=== PATIENT | male | born 1950 | race Caucasian/White ===

== ENCOUNTER 2021-06-01 13:43 | Emergency (ER) | payer MEDICARE, OTHER, SELFPAY ==
[2021-06-01 13:44] VITALS: BP 140/80; PULSE 61; RESP 16; TEMP 36.4; O2SAT 98; BMI 28.5
--- NOTE | 2021-06-01 14:29 | EKG12_ITS ---
Test Reason : DIZZINESS Blood Pressure : / mmHG Vent. Rate : 056 BPM Atrial Rate : 056 BPM P-R Int : 194 ms QRS Dur : 100 ms QT Int : 408 ms P-R-T Axes : 008 -11 028 degrees QTc Int : 393 ms Sinus bradycardia with Premature atrial complexes Otherwise normal ECG Confirmed by OLY COUCH, MADIHA ([id number]), managing editor GRETA GONZALEZ ([id number]) on 06/05/2021 9:45:36 AM Referred By: DORI/FLAKITA Confirmed By:WENDI ALDRIDGE MD
--- NOTE | 2021-06-01 14:35 | RAD_ITS ---
STUDY: X-RAY CHEST REASON FOR EXAM: Male, 70 years old. Stroke TECHNIQUE: Single AP portable view of the chest. COMPARISON: Comparison is made with prior study dated 02/27/2017. FINDINGS: Mild increased markings at the left lung base suggestive of a left basilar atelectasis and/or early infiltrate. There is no demonstrated pleural abnormality. Normal size heart. Normal mediastinum and ghazal. Normal visualized pulmonary arteries. There is atherosclerotic calcification of the aortic arch with tortuosity. There are diffuse degenerative changes of the visualized thoracic spine. Levoscoliosis. Normal visualized ribs, clavicles, and shoulders. There is no demonstrated abnormality of the visualized soft tissue structures of the upper abdomen. RAD/Chest 1 View (Portable) IMPRESSION: Mild increased markings at the left lung base suggestive of atelectasis and/or early infiltrate. Electronically Signed: Tanner Leslie MD at 15:03 EST , Service support ,
[2021-06-01 15:07] VITALS: BP 173/106; PULSE 56; RESP 9; O2SAT 98
[2021-06-01 15:08] VITALS: O2SAT 96
[2021-06-01 15:17] LABS: Absolute Lymphocyte Count 1.24 X10^3/uL (0.83-4.51); Absolute Neutrophil Count 5.4 X10^3/uL (2.0-7.7); Basophil# 0.09 X10^3/uL; Basophil% 1.2 % (0-1); Eosinophils% 2.6 % (0-5); Hematocrit 43.5 % (40-54); Hemoglobin 14.6 g/dL (13.0-16.5); Lymphocyte # 1.24 X10^3/ul (0.83-4.51); Lymphocyte % 15.9 % (19-41); Mean Corp Hgb Conc 33.6 g/dL (32-36); Mean Corpuscular Hgb 30.9 pg (27.0-32.0); Mean Corpuscular Volume 92.2 fL (80-94); Mean Platelet Vol. 11.9 fl (6.2-12.0); Monocyte% 10.3 % (0-10); NRBC Flagged by Analyzer 0 % (0-5); Neutrophil # 5.43 X10^3/uL (2.7-7.7); Neutrophil % 69.6 % (47-70); Platelet Count 169 K/mm3 (150-450); RBC Distribution Width CV 12.7 % (11.6-14.6); RBC Distribution Width SD 42.6 fl (35.1-43.9); Red Blood Count 4.72 M/mm3 (4.6-6.2); White Blood Count 7.8 K/mm3 (4.4-11.0)
[2021-06-01 15:25] LABS: Prothrombin Time (Protime)PT. 12.6 SECONDS (11.7-14.9)
[2021-06-01 15:26] LABS: Partial Thromboplast Time 30.1 Seconds (24.1-36.2)
[2021-06-01 15:29] LABS: Anion Gap 2 (5-15); BUN 17 mg/dL (7-18); BUN/Creat Ratio 15.7 RATIO (10-20); Calcium,Total 9.9 mg/dL (8.5-10.1); Chloride 105 mmol/L (98-107); Creatinine, Serum 1.08 mg/dL (0.70-1.30); EST Glomerular Filtration Rate 71 mL/min (>60); Est Glom Filt Rate - Afr Amer 86 mL/min (>60); Estimated Creatinine Clearance 65.85 ml/min; Glucose 94 mg/dL (74-106); Potassium 4.5 mmol/L (3.5-5.1); Sodium Level 139 mmol/L (136-145)
[2021-06-01 16:10] VITALS: BP 137/92; PULSE 52; O2SAT 96
--- NOTE | 2021-06-01 16:33 | EDS_ITS ---
HPI History of Present Illness Chief Complaint: Dizziness Informant: patient and spouse/S.O. Onset/Context/Timing Onset: Days Context: Gradual Onset Timing: Intermittent Current Severity: Mild Maximum Severity: Mild Narrative Narrative: 68-year-old male history of stroke about 10 years ago. States on Saturday he had a 1 to 2-hour episode of room spinning worsening versus fine. He did not want to be evaluated at that time. Family finally talked him into being evaluated today. He denies any headache or head trauma. No chest pain or shortness of breath. No nausea, vomiting or diarrhea. Saturday had some mildly loose stools. States that he is always dizzy to seem worse on Saturday. He had no trouble moving his arms or legs. No trouble with his vision or speech. Prior similar symptoms: Yes Recent Illness/Hospitalization: No PFSH PFSH Medical History Gout Hypertension Stroke/cerebrovascular accident TBI (traumatic brain injury) Home Medications aspirin 81 mg PO DAILY@0800 07/26/16 [History Last Taken 02/27/17] lisinopril-hydrochlorothiazide [Zestoretic] 1 ea PO DAILY 07/26/16 [History Last Taken 02/26/17] simvastatin 40 mg PO QHS 07/26/16 [History Last Taken 02/26/17] allopurinol 100 mg PO DAILY 12/30/16 [History Last Taken 02/26/17] diphenhydramine HCl [Banophen] 25 - 50 mg PO QHS PRN PRN 01/08/17 [History Last Taken 02/26/17] Allergy/AdvReac Type Severity Reaction Status Date / Time Sulfa (Sulfonamide Allergy Other Verified 06/01/21 13:45 Antibiotics) Social History Smoking Status: Never smoker ROS ROS ED ROS Narrative No recent illness. Review of Systems ROS Unobtainable: Denies due to encephalopathy Constitutional Constitutional ED: Denies fever(s) Eyes Eyes: Denies change in vision ENT ENT ED: Denies ear pain Cardiovascular Cardiovascular: Denies chest pain Respiratory/Chest Respiratory/Chest: Denies dyspnea Gastrointestinal Gastrointestinal: Denies abdominal pain, nausea or vomiting Genitourinary Genitourinary ED: Denies dysuria Musculoskeletal Musculoskeletal: Denies myalgias Integumentary Denies rash Neurologic Neurologic: Denies headache(s) Psychiatric Psychiatric: Denies depression Endocrine Endocrinology: Denies polyuria Allergic/Immunologic Allergic/Immunologic ED: Denies urticaria EXAM Physical Exam Narrative Exam Narrative: 68-year-old male no acute distress lying in bed. Family at bedside. H EENT exam unremarkable. Dry reactive light no facial droop normal speech neck nontender lungs clear to auscultation bilaterally. Heart regular rhythm rate about 60 no murmur. Abdomen soft nontender. Moving all 4 extremities. 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 Dorsi plantarflexion intact. No drift of either upper or lower extremities. Neurologically is awake alert he is answering questions and following commands. NIH score is 0. I did do Hallpike maneuvers with him lying in bed and then setting up quickly and he had no change in his symptoms. He does have significant wax in both ear canals. Const Vital Signs: 06/01/21 13:44 06/01/21 15:07 06/01/21 15:08 Temperature 97.6 F L Temperature Source Temporal Pulse Rate 61 56 L Respiratory Rate 16 9 L Blood Pressure 140/80 H 173/106 H Blood Pressure Mean 100 128 Pulse Ox 98 98 96 Oxygen Delivery Method Room Air Room Air Room Air 06/01/21 16:10 06/01/21 18:36 Temperature Temperature Source Pulse Rate 52 L 50 L Respiratory Rate 15 Blood Pressure 137/92 H 160/95 H Blood Pressure Mean 107 116 Pulse Ox 96 95 Oxygen Delivery Method Room Air Positive well nourished and well developed; Negative for obese, cachectic, contractures or unkempt General Appearance ED: well developed and NAD; Negative for unkempt, cachectic, contractures, cyanotic or diaphoretic Nutritional Appearance: Negative for cachectic or obese HEENT Reports moist mucous membranes HEENT Narrative: Wax in both ear canals. Negative for trauma or tenderness Eyes PERRL and EOMs intact bilaterally Neck no lymphadenopathy, supple and no JVD Chest Wall inspection of chest normal and palpation of chest normal Resp normal respiratory effort and clear to auscultation bilaterally Effort and Inspection: Negative for pain with movement Auscultation: Negative for rales, rhonchi or wheezes Cardio regular rate, regular rhythm, S1 normal heart sound, S2 normal heart sound and no murmurs GI normal to inspection, nondistended, normoactive bowel sounds, non-tender, non- distended and no masses Auscultation: normoactive bowel sounds Palpation: soft; Negative for tender, guarding or rebound tenderness present Back/Spine no CVA tenderness General Back: Negative for CVA tenderness Extremity normal to inspection General Extremety ED: Negative for edema or tenderness General Extremity: Negative for edema Neuro oriented x3 and CN's II-XII intact bilaterally Sensorium / Orientation: alert; Negative for orientation impaired, lethargic or stuporous Motor Exam: strength 5/5 throughout Psych mental status grossly normal Appearance: Negative for unkempt Mood & Affect: Negative for depressed Skin no rashes or lesions noted, no wounds and skin turgor normal MDM MDM MDM Narrative Medical decision making narrative: 70-year-old male with episode of vertigo-like dizziness on Saturday that is since resolved. He has no motor deficits at this time. He will undergo work-up. Including a CAT scan. Repeat exam patient is doing well at 6:55 PM will be discharged home with outpatient follow-up. Lab Data Attestation: I reviewed the patient's lab results. Lab results narrative: CBC shows a white count of 7 hemoglobin 14. PT PTT INR unremarkable electrolytes unremarkable gap 2 normal BUN and creatinine glucose 94. Labs: Laboratory Results - last 24 hr 06/01/21 06/01/21 06/01/21 15:05 15:05 15:05 WBC 7.8 RBC 4.72 Hgb 14.6 Hct 43.5 MCV 92.2 MCH 30.9 MCHC 33.6 RDW Std Deviation 42.6 RDW Coeff of Anna 12.7 Plt Count 169 MPV 11.9 Immature Gran % (Auto) 0.400 Neut % (Auto) 69.6 Lymph % (Auto) 15.9 L Stearns % (Auto) 10.3 H Eos % (Auto) 2.6 Baso % (Auto) 1.2 H Absolute Neuts (auto) 5.4 Absolute Lymphs (auto) 1.24 Nucleated RBC % 0 PT 12.6 INR 1.0 APTT 30.1 Sodium 139 Potassium 4.5 Chloride 105 Carbon Dioxide 32.0 Anion Gap 2 L BUN 17 Creatinine 1.08 Estim Creat Clear Calc 65.85 Est GFR (MDRD) Af Amer 86 Est GFR (MDRD) Non-Af 71 BUN/Creatinine Ratio 15.7 Glucose 94 Calcium 9.9 Radiography Chest X-Ray - ED: 1 View, Read by ED Physician, Read by Radiologist, Heart, Lungs, Mediastinum, Bony Structures, No Acute Disease and Chronic Changes Diagnostic Testing: Clinical Impression(s) from Imaging Studies Chest X-Ray 06/01/21 14:35 IMPRESSION: Mild increased markings at the left lung base suggestive of atelectasis and/or early infiltrate. Electronically Signed: Tanner Leslie MD at 15:03 EST , Service support , Brain CT 06/01/21 16:45 IMPRESSION: Chronic involutional changes without evidence of acute intracranial or calvarial abnormality. There is no major interval change. Electronically Signed: Christian Bahena DO at 16:59 EST Tel [phone], Service support , Single view chest x-ray shows no acute abnormality. Interpreted by myself and the radiologist. CAT scan of the brain no acute abnormality read by the radiologist and reviewed by me. Rhythm Strip Rhythm Strip: Sinus Rhythm Rate: 56 Ectopy: PAC(s) EKG Initial EKG: Attestation: I personally reviewed and interpreted this EKG as follows: Interpretation: Sinus Rhythm and No Acute Injury Pattern Comments: Sinus bradycardia rate of 56 no acute signs of AR or ischemia. Few PACs. Unchanged from prior EKG. Prior EKG tracings: available for review Prior: Unchanged Discharge Plan Triage Chief Complaint: Dizziness ED Provider: Ezekiel Parker Dx/Rx/DC Orders Clinical Impression: Dizziness, History of stroke Instructions: ED Dizziness, Uncertain Cause Prescriptions: No Action aspirin 81 MG tablet 81 mg PO DAILY@0800 RF: 0 simvastatin 40 MG tablet 40 mg PO QHS RF: 0 lisinopril-hydrochlorothiazide [Zestoretic] 1 EACH tablet 1 ea PO DAILY RF: 0 allopurinol 100 MG tablet 100 mg PO DAILY RF: 0 diphenhydramine HCl [Banophen] 25 MG capsule 25 - 50 mg PO QHS PRN PRN (Reason: allergies/ insomnia) RF: 0 Primary Care Provider: Carlton Gaspar Referrals: Cartlon Gaspar MD [Primary Care Provider] - 3-5 Days if not improving Activity Restrictions/Additional Instructions: Follow-up with your primary care physician not improving. Your labs and CAT scan today were unremarkable. You have a severe amount of wax in both ears sometimes that can cause dizziness you can get [id number] Cerumenex or drops for earwax that should help this go away. Disposition Disposition: Home, Self Care
--- NOTE | 2021-06-01 16:45 | CT_ITS ---
STUDY: CT BRAIN WITHOUT CONTRAST REASON FOR EXAM: Male, 70 years old. Dizziness. RADIATION DOSAGE (If Supplied By Facility): CTDIvol = ( 44.99 ) mGy, DLP = ( 914.22 ) mGycm TECHNIQUE: Transaxial CT imaging of the brain was performed without administration of intravenous contrast material. Individualized dose optimization techniques were used for this CT. COMPARISON: MRI of the brain, 10/07/2015. FINDINGS: Normal soft tissue structures. Normal calvarium. There is mild cerebral atrophy with widening of the extra-axial spaces and ventricular dilatation. Normal white matter tracts of the cerebral hemispheres. Normal basal ganglia and thalami. Normal brainstem. There is mild cerebellar atrophy. There is no intracranial hemorrhage. There are no findings of an acute ischemic infarction. Normal visualized paranasal sinuses. CT/Brain/Head without Contrast IMPRESSION: Chronic involutional changes without evidence of acute intracranial or calvarial abnormality. There is no major interval change. Electronically Signed: Christian Bahena DO at 16:59 EST Tel [phone], Service support ,
[2021-06-01 18:36] VITALS: BP 160/95; PULSE 50; RESP 15; O2SAT 95
[2021-06-01 19:02] VITALS: BP 169/83; PULSE 50; RESP 12; O2SAT 97
== END 2021-06-01 19:09 | disposition home or self-care (01) ==
PROVIDERS: Emergency Provider Emergency Medicine; PCP Family Medicine
DX: R42 Dizziness and giddiness (principal); I10 Essential (primary) hypertension; M10.9 Gout, unspecified; I70.0 Atherosclerosis of aorta; Z86.73 Personal history of transient ischemic attack (TIA), and cerebral infarction without residual deficits; G31.9 Degenerative disease of nervous system, unspecified; R00.1 Bradycardia, unspecified
CPT/HCPCS: 70450; 71045; 80048; 85025; 85610; 85730; 93005; 99284

== ENCOUNTER 2021-07-17 10:47 | Day surgery (SDC) | payer MEDICARE, OTHER, SELFPAY ==
[2021-07-17] VITALS (7 sets, daily range): BP systolic 100–159; BP diastolic 74–97; PULSE 54–65; RESP 16; TEMP 36.4–36.8; O2SAT 93–100; BMI 28.3
[2021-07-17] MEDS: Lactated Ringers 1,000 ML 15 ML IV (11:36)
--- NOTE | 2021-07-17 11:56 | HP.PCM_ITS ---
History and Physical Date of Admission: 07/17/21 REASON FOR VISIT Lino Novak is a 70 year old male who is scheduled at the request of Carlton Gapsar for Outpatient Colonoscopy (5 year repeat colonoscopy). My final recommendations will be communicated back to the requesting physician by the way of the shared medical record, fax, or via US Mail ? The patient was seen by on 06/11/2014?for colonoscopy for screening in patient at increased risk: Family history of 1st-degree relative with colorectal cancer, Last colonoscopy 5 years ago.. ?The procedures were performed with Midazolam 4 mg IV, Fentanyl 75 micrograms IV sedation. The procedure report has been reviewed and findings as follows: Impression: ?- Diverticulosis in the entire examined colon. The examination was otherwise normal. The distal rectum and anal verge are normal on ? retroflexion view. Repeat colonoscopy in 5 years for screening purposes. ? ? HISTORY OF PRESENT ILLNESS Lino Novak is a 70 year old male with a past medical history HTN, hyperlipidemia cerebellar stroke syndrome(2009) on Aspirin , gout, MARY on BIPAP , dizziness, imbalance, TIA. Patient has a family history mother diagnosised colon cancer. who presents today for an evaluation of colon cancer screening. ? The patient denies change in bowel habits, denies black stool or rectal bleeding or abdominal pain. Having a bowel movement Was having soft stool taking probiotic and since has been fine ? SOB is with bending over - patient and states this is more weight related REVIEW OF SYSTEMS: GENERAL: No weight loss, malaise or fevers HEENT: Negative for frequent or significant headaches, No changes in hearing or vision, no nose bleeds or other nasal problems NECK: Negative for lumps, goiter, pain and significant neck swelling RESPIRATORY: Negative for cough, hemoptysis, wheezing, COPD, dyspnea or shortness of breath CARDIOVASCULAR: Negative for chest pain, leg swelling, hypertension, CHF or palpitations GI: SEE HPI : No history of dysuria, frequency or incontinence MUSCULOSKELETAL: Negative for joint pain or swelling, back pain or muscle pain SKIN: Negative for lesions, rash, and itching PSYCH: Negative for sleep disturbance, mood disorder and recent psychosocial stressors. HEMATOLOGY/LYMPHOLOGY Negative for prolonged bleeding, bruising easily or swollen nodes ENDOCRINE: Negative for cold or heat intolerance, polyuria, polydipsia and goiter NEURO: No history of headaches, syncope, paralysis, seizures or tremors All other reviewed and negative other than HPI. PAST MEDICAL HISTORY PAST MEDICAL HISTORY Diagnosis Date ? ALLERGIC RHINITIS NOS ? ? Cerebellar stroke syndrome 03/2010 ? discoordination, speech deficit, right hearing loss, right facial hypesthesia ? Dizziness ? ? ED (erectile dysfunction) ? ? Essential hypertension, benign ? ? Gout ? ? Imbalance ? ? 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 MARY on CPAP ? ? Other and unspecified hyperlipidemia ? ? TIA (transient ischemic attack) ? ? PAST SURGICAL HISTORY PAST SURGICAL HISTORY Procedure Laterality Date ? COLONOSCOP W/ OR W/O BRSH SPEC ? 03/10/04 ? Repeat in ? COLONOSCOPY ? 06/11/14 ? diverticulosis ? COLONOSCOPY & POLYPECTOMY ? 01/21/01 ? hyperplastic polyp rectum ? HERNIA REPAIR HX Bilateral 08/02/2016 ? inguinal & umbilical ? PAST SURGICAL HISTORY OF Right ? ? gliangioma removal-hand ? PILONIDAL CYST/SINUS EXCISION ? ? ? RBC HEMANGIO (SPECT) ? 2009 ? REMOVAL OF TONSILS,<12 Y/O ? TRACHEOSTOMY (SPECIFY) ? 1967 ? head injury ? CURRENT MEDICATIONS Current Outpatient Medications Medication Sig Dispense Refill ? fluticasone (FLONASE) 50 mcg/actuation nasal spray Use 1 [place] in each n ostril twice daily. 1 Each 11 ? escitalopram oxalate (ESCITALOPRAM) 5 mg tablet Take 1 tablet by mouth once daily. 90 tablet 3 ? lisinopril (ZESTRIL,PRINIVIL) 30 mg tablet Take 1 tablet by mouth once daily. 90 tablet 3 ? allopurinol (ZYLOPRIM) 300 mg tablet Take 1 tablet by mouth once daily. For gout. 90 tablet 3 ? simvastatin (ZOCOR) 20 mg tablet Take 1 tablet by mouth daily at bedtime. 90 tablet 3 ? ubidecarenone Q-10 (CO Q-10) 10 mg cap Take 1 capsule by mouth once daily. ? ? ? cholecalciferol, Vitamin D3, (VITAMIN D3) 50,000 unit cap capsule Take 1 capsule by mouth once each week. ? 0 ? diphenhydrAMINE (BENADRYL) 25 mg capsule Take 25 mg by mouth at bedtime as needed. ? ? ? Aspirin 81 mg ORAL Tab Take 1 tablet by mouth once daily. Take with food. 30 tablet 11 ? ibuprofen 200 mg ORAL tablet Take 3 tablets by mouth every 8 hours as needed for Pain (Take with food.). ? 0 ? CPAP Replacement bipap PAP setting to 13/9 cmH2O. Please provide us download after 1 week of being on this setting. 1 Device 99 ? CPAP Please decrease PAP setting to 13/9 cmH2O and provide us download for the next 2 weeks. 1 Device 99 ? CPAP Patient wishes to change to [facility]. Patient needs PAP supplie s. Lifetime supplies. 1 Device 99 ? COMPOUNDED PRESCRIPTION BiPap machine, mask, and supplies. Setting 15/05. Dx MARY 327.23 1 Each 0 ? No current facility-administered medications for this visit. ? ? ALLERGIES ALLERGIES Allergen Reactions ? Environmental [Othe* ? ? Sulfa (Sulfonamide * Unknown ? ? SOCIAL HISTORY Social History ? Tobacco Use ? Smoking status: Never Smoker ? Smokeless tobacco: Never Used Vaping Use ? Vaping Use: Never used Substance Use Topics ? Alcohol use: No ? Drug use: No ? ? FAMILY HISTORY (grandparents, parents, brothers, sisters, aunts, or uncles) Ulcerative Colitis: No Crohn's Disease: No Colon Cancer: Yes mother Colon Polyps: No IBS: No Celiac disease: No ? PHYSICAL EXAMINATION BP 144/88 Pulse 55 Ht 5' 10.079 (1.78m) Wt 208 lb (94.3kg) SpO2 98% BMI 29.78 kg/(m^2). ? General Appearance: Well appearing, alert, in no acute distress, well-hydrated, well nourished. Eyes: PERRLA, conjunctiva and sclera normal Oropharynx: Lips, tongue, and oral mucosa normal. There is no thrush or oral ulcers. Lungs:breath sounds clear to auscultation bilaterally, no crackles, rhonchi, or wheezes Heart: regular rate and rhythm, no murmurs or gallops. Abdomen: not distended, normal bowel sounds, soft and depressible, no guarding or rebound, no palpable mass, no organomegaly Rectal exam: Deferred. Extremities: no cyanosis or edema Skin: no jaundice, no spider angiomas, no palmar erythema Neuro:alert, oriented x 3, pleasant and in no acute distress ? ? IMPRESSION (Z80.0) Family history of colon cancer in mother (primary encounter diagnosis) (Z12.11) Colon cancer screening ? ? PLAN ASSESSMENT/PLAN: 1. Family history of colon cancer in mother - ICD9: V16.0, ICD10: Z80.0 (primary diagnosis) - COLONOSCOPY, SCREENING, HIGH RISK -Patient presents today for surveillance colonoscopy screening. Patient denies upper and lower GI concerns at this time. Due to patient's history of cerebellar stroke, TIA MARY on BiPAP we will schedule colonoscopy with MAC sedation. 2. Colon cancer screening - ICD9: V76.51, ICD10: Z12.11 ? - COLONOSCOPY, SCREENING, HIGH RISK ? Plan is to follow up after test(s) and as needed (prn). ? ? ? Maryam Navas, CLINICAL RESEARCH COORDINATOR.STOCK CLERK .. I have re-examined the patient. There are no clinical changes since date of exam.
--- NOTE | 2021-07-17 12:42 | OP.COLON_ITS ---
Patient Name: Lino Novak Procedure Date: 07/17/2021 12:05 PM Date of : 1950 Age: 71 Procedure: Colonoscopy Indications: Family history of colon cancer in a first-degree relative Providers: Chuck Puckett MD Medicines: See the Anesthesia note for documentation of the administered medications Patient Profile: This is a 71 year old male. Refer to note in patient chart for documentation of history and physical. Last Colonoscopy: 2015. Complications: No immediate complications. Estimated blood loss: None. Procedure: Pre-Anesthesia Assessment: - Prior to the procedure, a History and Physical was performed, and patient medications and allergies were reviewed. The patient's tolerance of previous anesthesia was also reviewed. The risks and benefits of the procedure and the sedation options and risks were discussed with the patient. All questions were answered, and informed consent was obtained. Prior Anticoagulants: The patient has taken aspirin, last dose was 7 days prior to procedure. ASA Grade Assessment: III - A patient with severe systemic disease. After reviewing the risks and benefits, the patient was deemed in satisfactory condition to undergo the procedure. After I obtained informed consent, the scope was passed under direct vision. Throughout the procedure, the patient's blood pressure, pulse, and oxygen saturations were monitored continuously. The colonoscope was introduced through the anus and advanced to the cecum, identified by appendiceal orifice and ileocecal valve. The colonoscopy was technically difficult and complex due to significant looping. The patient tolerated the procedure well. The quality of the bowel preparation was poor. Scope In: 12:08:50 PM Scope Withdrawal Time 0 hours 8 minutes 18 seconds Scope Out: 12:36:12 PM Total Procedure Duration Time 0 hours 27 minutes 22 seconds Findings: Non-bleeding internal hemorrhoids were found during retroflexion. The hemorrhoids were mild and small. Multiple small and large-mouthed diverticula were found in the sigmoid colon and descending colon. No biopsies or other specimens were collected for this exam. The exam was otherwise without abnormality. Impression: - Preparation of the colon was poor. - Non-bleeding internal hemorrhoids. - Diverticulosis in the sigmoid colon and in the descending colon. No specimens collected. - The examination was otherwise normal. Recommendation: - Discharge patient to home. - Resume previous diet. - Continue present medications. - Repeat colonoscopy in 5 years for surveillance. - Return to primary care physician PRN. Procedure Code(s): --- Professional --- 92070, Colonoscopy, flexible; diagnostic, including collection of specimen(s) by brushing or washing, when performed (separate procedure) Diagnosis Code(s): --- Professional --- K64.8, Other hemorrhoids Z80.0, Family history of malignant neoplasm of digestive organs K57.30, Diverticulosis of large intestine without perforation or abscess without bleeding CPT copyright 2017 [employer]. All rights reserved. The codes documented in this report are preliminary and upon affiliate marketing specialist review may be revised to meet current compliance requirements. MD Chuck Calhoun MD 07/17/2021 12:41:37 PM This report has been signed electronically. Number of Addenda: 0 Note Initiated On: 07/17/2021 12:05 PM
--- NOTE | 2021-07-17 12:43 | OP.CCLET_ITS ---
07/17/2021 Carlton Gaspar [address] [place] [address] Re : Colonoscopy procedure for Lino Novak Dear Dr. Gaspar This procedure was performed on Saturday, July 17, 2021. My impressions and recommendations are as follows: Impressions : - Preparation of the colon was poor. - Non-bleeding internal hemorrhoids. - Diverticulosis in the sigmoid colon and in the descending colon. No specimens collected. - The examination was otherwise normal. Recommendations : - Discharge patient to home. - Resume previous diet. - Continue present medications. - Repeat colonoscopy in 5 years for surveillance. - Return to primary care physician PRN. My findings are described in the full procedure note, which is enclosed. If I can be of further assistance, please feel free to contact me at Doctor phone number(s): , Work: . Sincerely, MD Chuck Calhoun MD 07/17/2021 12:41:37 PM This report has been signed electronically.
== END 2021-07-17 23:59 | disposition home or self-care (01) ==
LOC: EN 10:54 → AC 10:55
PROVIDERS: PCP Family Medicine; Referring Provider Family Medicine; Visit Provider Surgery
PROC: 0DJD8ZZ Inspection of Lower Intestinal Tract, Via Natural or Artificial Opening Endoscopic (ICD-10-PCS; CPT 45378; principal; 2021-07-17 11:55)
DX: Z12.11 Encounter for screening for malignant neoplasm of colon (principal); K57.30 Diverticulosis of large intestine without perforation or abscess without bleeding; K64.8 Other hemorrhoids; M10.9 Gout, unspecified; I10 Essential (primary) hypertension; G47.33 Obstructive sleep apnea (adult) (pediatric); E78.5 Hyperlipidemia, unspecified; Z80.0 Family history of malignant neoplasm of digestive organs; Z86.73 Personal history of transient ischemic attack (TIA), and cerebral infarction without residual deficits; Z79.899 Other long term (current) drug therapy; G43.909 Migraine, unspecified, not intractable, without status migrainosus; E78.00 Pure hypercholesterolemia, unspecified; Z87.19 Personal history of other diseases of the digestive system; H91.90 Unspecified hearing loss, unspecified ear
CPT/HCPCS: J7120; J2405

== ENCOUNTER 2021-11-07 11:30 | Outpatient (RCR) | payer MEDICARE, OTHER, SELFPAY ==
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
--- NOTE | 2021-07-28 12:46 | HP.PTCOM ---
PT Communication Note 07/28/[address] Homer Hernandez MD , Thank you for the referral of Lino to [facility] for balance work. I have enclosed a copy of his testing for your review. In summation, he scored low on the vestibular portion of the Sensory Organization Test. He also scored low o the Limits of Stability Fw weight shift. With these results in mind, we will treat him with balance exercises in his plan of care and progression to home program as safety allows. Please let me know if there are concerns or questions regarding his treatment. Sincerely, Óscar Cruz DPT, OCS, CSCS Contact Information
--- NOTE | 2021-08-31 12:24 | HP.PTREVAL_ITS ---
Dr. Homer Hernandez MD, It has been my pleasure to treat MONTANA CABRERA over the last 9 visits for abnormality of gait and recurrent falls.. Please see the progress note below for an update on the physical therapy plan of care! Subjective: Pt. reports overall doing well. He is still having some trouble with his balance. I have gotten better, but not all the way there. Pt. reports being HEP compliant, but is not back to walking routine. Objective/Function: TU.3 sec without AD. 6 MWT: 878' without AD. SLS: 14sec on R, 18sec on L. MMT: 5-/5 throughout, except B ankle plantar flexion 4+/5 and hip flexion 4/5, and 4/5. GAIT: Pt. is doing better with gait, but continues to have difficulty with directional changes. Pt. reports no pain. he does try and reach out of garza if present. FGA: . Difficulty with narrow LEXI, eyes closed, retro walking and stairs. STAIRS: Pt. able to complete with BHR with reciprocal pattern, methodical with descending. Plan Plan: I would like to see him weekly with progressing of HEP and working dynamic balance, endurance with gait progression and functional LE strengthening. Balance/Gait/Functional tests - Balance/Special Test Scores Functional Gait Assessment Score: 15 % Disability: 50.0000 CATSIB Score (Max score 120 seconds): 38 Lower Extremity Functional Score: 37 TUG Test Time Seconds: 11.8 Tug Test: <20 sec.=mostly independent Goals Goal 1:: LTG: Pt. to be I with HEP. Goal Time Frame: 4-6 Weeks Goal Progress: Progressing Goal 2:: STG: Pt. to have balance neurocom assessment completed and results applied to treatment program. Goal Time Frame: 2 Weeks Goal Progress: Goal Met Goal 3:: LTG: Pt. to have increased bilateral ankle and hip strength increased to at least 5-/5 throughout. Goal Time Frame: 4-6 Weeks Goal Progress: Progressing Goal 4:: LTG: Pt. to completed TUG in 8 secs or less indicating increased functional stability. Goal Time Frame: 4-6 Weeks Goal Progress: Progressing Goal 5:: LTG: Pt. to completed 6 MWT with walking at least 700' with use of least restrictive device vs no AD. Goal Time Frame: 4-6 Weeks Goal Progress: Progressing Goal 6:: LTG: Pt. to negotiate 1 flight of stairs with 1 HR with reciprocal pattern with use of 1 HR with proper stability and control. Goal Time Frame: 4-6 Weeks Goal Progress: Progressing Anticipated Interventions Patient/Client Instruction: Educate patient on: Condition, Plan of Care, Risk Factors, Benefits of Fitness Program For the Purpose of:: To foster healthy habits, To improve decision making, To facilitate caregiver knowledge, To improve self management, To prevent re- injury, To improve ability to perform tasks related to life management Therapeutic Exercise to Include: Strength training, Power training, Balance training, Coordination, Body mechanics, Postural training, Gait and locomotor training, Neuromotor development, via Neurocom Balance Mas For the Purpose of:: To decrease pain, To increase ROM, To improve nutrient delivery to tissue, To increase oxygenation perfusion, To improve muscle performance and motor function, To improve ability to perform ADL's, To improve ability of physical actions for home/community/work/leisure, To improve gait and locomotor functions, To improve health of tissue, To decrease soft tissue restriction, To increase flexibility/ROM, To improve endurance, To improve balance, To improve safety with gait, To assume or resume ADL's, To reduce risk of recurrence Please do not hesitate to contact me at [phone] by phone or Fax: if you have questions or concerns regarding this new plan of care! Sincerely, MARBIN McculloughT
--- NOTE | 2021-09-26 07:58 | HP.PTREVAL_ITS ---
Dr. Homer Hernandez MD, It has been my pleasure to treat LINO CABRERA over the last 12 visits for abnormality of gait and recurrent falls.. Please see the progress note below for an update on the physical therapy plan of care! Subjective: Pt. arrives today with spouse walking with cane. Pt. reports overall doing well, but spouse reports having some concerns. She has concerns about Lino walking outside in the dark. I responded with walking the dog outside in the dark may not be the best idea, but they were insistent on him being able to do so as he does not sleep well and like to walk the dog in his yard at night. She was also concerned about him getting up from the ground if he was to fall down outside of in the middle of an area without anything to push up on. Objective/Function: TU.1 sec without AD, difficult with directional changes. FGA , difficulty with narrow LEXI and with eyes closed. No AD u sed. 6 MWT with cane: 682 feet, fatigue noted. Stairs: pt. completed with reciprocal pattern with 2 HR. MMT: 5/5 throughout. 30 sec sit to stand rep test: 11, close to age appropriate. floor transfers: Pt. is able to go from prone to quadruped. He is able to stand using chair/table without issues. With out external assistance he attempts to walk him self up his legs, but has imbalance noted. He required Julio to complete. After talking with patient and spouse they have large concerns about stairs with 1 HR and with floor transfers in case of falling. They are more concerned about falling out in community and not being able to get back up. Plan Plan: Work with Lino on floor transfer, both in technique and with strength. Practice with and without external assistance from chair/table. Progressing towards I. Work on stair negotiation with 1 HR with increased stability. Balance/Gait/Functional tests - Balance/Special Test Scores Functional Gait Assessment Score: 15 % Disability: 50.0000 CATSIB Score (Max score 120 seconds): 38 Lower Extremity Functional Score: 53 TUG Test Time Seconds: 11.8 Tug Test: <20 sec.=mostly independent Goals Goal 1:: LTG: Pt. to be I with HEP. Goal Time Frame: 4-6 Weeks Goal Progress: Progressing Goal 2:: NEW GOAL: Pt. to be able to complete floor transfers without external assistance, Independently. Goal Time Frame: 2 Weeks Goal Progress: Progressing Goal 3:: LTG: Pt. to have increased bilateral ankle and hip strength increased to at least 5-/5 throughout. Goal Time Frame: 4-6 Weeks Goal Progress: Goal Met Goal 4:: LTG: Pt. to completed TUG in 8 secs or less indicating increased functional stability. Goal Time Frame: 4-6 Weeks Goal Progress: Progressing Goal 5:: LTG: Pt. to completed 6 MWT with walking at least 700' with use of least restrictive device vs no AD. Goal Time Frame: 4-6 Weeks Goal Progress: Progressing Goal 6:: LTG: Pt. to negotiate 1 flight of stairs with 1 HR with reciprocal p attern with use of 1 HR with proper stability and control. Goal Time Frame: 4-6 Weeks Goal Progress: Progressing Anticipated Interventions Patient/Client Instruction: Educate patient on: Condition, Plan of Care, Risk Factors, Benefits of Fitness Program For the Purpose of:: To foster healthy habits, To improve decision making, To facilitate caregiver knowledge, To improve self management, To prevent re- injury, To improve ability to perform tasks related to life management Therapeutic Exercise to Include: Strength training, Power training, Balance training, Coordination, Body mechanics, Postural training, Gait and locomotor training, Neuromotor development, via Neurocom Balance Mas For the Purpose of:: To decrease pain, To increase ROM, To improve nutrient delivery to tissue, To increase oxygenation perfusion, To improve muscle performance and motor function, To improve ability to perform ADL's, To improve ability of physical actions for home/community/work/leisure, To improve gait and locomotor functions, To improve health of tissue, To decrease soft tissue restriction, To increase flexibility/ROM, To improve endurance, To improve balance, To improve safety with gait, To assume or resume ADL's, To reduce risk of recurrence Please do not hesitate to contact me at [phone] by phone or if you have questions or concerns regarding this new plan of care! Sincerely, Isac Johnson DPT
--- NOTE | 2021-11-08 07:29 | HP.PTREVAL_ITS ---
Dr. Homer Hernandez MD, It has been my pleasure to treat MONTANA CABRERA over the last 21 visits for Abnormality of gait and recurrent falls.. Please see the progress note below for an update on the physical therapy plan of care! Subjective: Pt. reports overall doing well. No falls. Pt. reports being 85% better overall. Pt. reports no pain. He reports being HEP compliant without issues. Objective/Function: Pt. has good ROM of BLEs. Pt. has slight tight HS, but not bad. MMT: 5/5 throughout without increase in symptoms. TU.9 sec. floor transfers: pt. is able to go from standing to kneeling to prone and back without use of external balance aide. stairs 1 Hr with reciprocal pattern without limitations. Cane in opposite hand Plan Plan: Pt. to trial PT on his own for 2 weeks to see if he can self manage. Balance/Gait/Functional tests - Balance/Special Test Scores Functional Gait Assessment Score: 15 % Disability: 50.0000 CATSIB Score (Max score 120 seconds): 38 Lower Extremity Functional Score: 53 TUG Test Time Seconds: 11.8 Tug Test: <20 sec.=mostly independent Goals Goal 1:: LTG: Pt. to be I with HEP. Goal Time Frame: 4-6 Weeks Goal Progress: Goal Met Goal 2:: NEW GOAL: Pt. to be able to complete floor transfers without external assistance, Independently. Goal Time Frame: 2 Weeks Goal Progress: Goal Met Goal 3:: LTG: Pt. to have increased bilateral ankle and hip strength increased to at least 5-/5 throughout. Goal Time Frame: 4-6 Weeks Goal Progress: Goal Met Goal 4:: LTG: Pt. to completed TUG in 8 secs or less indicating increased functional stability. Goal Time Frame: 4-6 Weeks Goal Progress: Goal Met Goal 5:: LTG: Pt. to completed 6 MWT with walking at least 700' with use of least restrictive device vs no AD. Goal Time Frame: 4-6 Weeks Goal Progress: Progressing Goal 6:: LTG: Pt. to negotiate 1 flight of stairs with 1 HR with reciprocal pattern with use of 1 HR with proper stability and control. Goal Time Frame: 4-6 Weeks Goal Progress: Progressing Anticipated Interventions Patient/Client Instruction: Educate patient on: Condition, Plan of Care, Risk Factors, Benefits of Fitness Program For the Purpose of:: To foster healthy habits, To improve decision making, To facilitate caregiver knowledge, To improve self management, To prevent re- injury, To improve ability to perform tasks related to life management Therapeutic Exercise to Include: Strength training, Power training, Balance training, Coordination, Body mechanics, Postural training, Gait and locomotor training, Neuromotor development, via Neurocom Balance Mas For the Purpose of:: To decrease pain, To increase ROM, To improve nutrient delivery to tissue, To increase oxygenation perfusion, To improve muscle performance and motor function, To improve ability to perform ADL's, To improve ability of physical actions for home/community/work/leisure, To improve gait and locomotor functions, To improve health of tissue, To decrease soft tissue restriction, To increase flexibility/ROM, To improve endurance, To improve balance, To improve safety with gait, To assume or resume ADL's, To reduce risk of recurrence Please do not hesitate to contact me at [phone] by phone or if you have questions or concerns regarding this new plan of care! Sincerely, Isac Johnson DPT
--- NOTE | 2021-11-08 08:32 | HP.PTDCSUM ---
It has been my pleasure to treat MONTANA CABRERA referred by Dr. Homer Hernandez MD, with the diagnosis of Abnormality of gait and recurrent falls. for a total of 22 visit(s). Discharge Date: 11/08/21 Please see the following information for a summary of their discharge status. Subjective: Pt. arrives using [facility] today with spouse. They reports no issues over the last two weeks. He has been HEP compliant with his exercises and is attempting to walk more at local path. He reports no falls or issues. He did ask about walking on even surfaces ie grass and hills. % Improvement: 90 Objective/Function: UT.88sec no AD. 6 MWT: 1059feet with cane.- fatigue noted. STAIRS: 1 HR with cane no issues. curb steps with cane, but no HR with a little bit more difficult for him. He was able to complete, but did have mild retro loss of balance (self correct). Walking on grass- no issues, inclines/declines no issues with cane, Lateral inclines were a little bit more difficult, but patient able to complete without issues. Goal 1:: LTG: Pt. to be I with HEP. Goal Progress: Goal Met Goal 2:: NEW GOAL: Pt. to be able to complete floor transfers without external assistance, Independently. Goal Progress: Goal Met Goal 3:: LTG: Pt. to have increased bilateral ankle and hip strength increased to at least 5-/5 throughout. Goal Progress: Goal Met Goal 4:: LTG: Pt. to completed TUG in 8 secs or less indicating increased functional stability. Goal Progress: Goal Met Goal 5:: LTG: Pt. to completed 6 MWT with walking at least 700' with use of least restrictive device vs no AD. Goal Progress: Goal Met Goal 6:: LTG: Pt. to negotiate 1 flight of stairs with 1 HR with reciprocal pattern with use of 1 HR with proper stability and control. Goal Progress: Goal Met Plan: Pt. to be DC from [facility] at this point in time. Discharge Comments: Pt. reports overall doing well. He has progressed as expected with PT. He progressed well with LE strengthening, floor transfers, balance and gait on uneven surfaces he will be DC to [facility] at this point in time. If there are questions or concerns regarding this patient's physical therapy, please feel free to call me at [phone]. Thank you for the referral of this patient. Sincerely, Isac Johnson, DPT Balance/Gait/Functional tests - Balance/Special Test Scores Functional Gait Assessment Score: 15 % Disability: 50.0000 CATSIB Score (Max score 120 seconds): 38 Lower Extremity Functional Score: 61 TUG Test Time Seconds: 11.8 Tug Test: <20 sec.=mostly independent
== END 2021-11-07 19:00 | disposition home or self-care (01) ==
LOC: PT 11:30
PROVIDERS: PCP Family Medicine; Referring Provider Psychiatry & Neurology Sleep Medicine; Visit Provider Psychiatry & Neurology Sleep Medicine
DX: G46.4 Cerebellar stroke syndrome; Z86.73 Personal history of transient ischemic attack (TIA), and cerebral infarction without residual deficits; R42 Dizziness and giddiness; R29.6 Repeated falls; R26.9 Unspecified abnormalities of gait and mobility
CPT/HCPCS: 97110; 97161; 97164; 97530; 97750

== ENCOUNTER 2022-10-04 15:30 | Outpatient (RCR) | payer MEDICARE, OTHER, SELFPAY ==
--- NOTE | 2022-08-10 08:01 | HP.OTEVAL_ITS ---
Patient's Visit Information MONTANA CABRERA is a 72 year old M, referred to Occupational Therapy by Dr. Homer Hernandez MD, with a diagnosis of hand weakness. Date of Evaluation: 08/09/22 Occupational Therapist: Jennifer Duarte, SAMIR/Raine, CHT - Subjective This 72 year old male was seen for OT eval with dx of hand weakness. pt states hands are not as agile or not as flexible. pt states he has arthritis, and has hx of gout. pt also has hx of stroke ( year 2009) affecting right side, TBI remote hx (age 14) and had left hand weakness - abnormal gait, recurrent falls. pt states decrease in dexterity. pt states he is unable to open jars and states he is just clumsier. pt states he does work on the computer but having dif ficulty due to typing mistakes. pt plays the piano or organ but finger dexterity is not there. Pt and pts family would like to know what they can do to improve his finger dexterity and strength to improve his IND with IADLs and ADLs. - ADLs Eating: Cut food, Drink from glass Kitchen: Peel fruits & vegetables, Open jars, Open bottle caps Miscellaneous: Handle money (change), Carry shopping bag - ROM Shoulder: right/left WNL Elbow: right /left WNL ROM Comments: pt demo full ROM in bilateral hands. 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 Left: 26.12 sec. - In-Hand Manipulation Finger to Palm Translation: Mild - Right, Moderate - Left - Quick DASH-Disab of Arm,Shoulder& Hand Quick DASH Score: 30.0000 - Goals Goal:: pt will demo a increase in left hazard waste handler strength by 15# to increase ind. with ADLs and IADLs by d.c Goal:: pt will demo increase in FMS noted by decrease in timed 9-hole peg test by 10 sec. or greater by d/c. pt will report increase ind. with open jar lids IND by d/c Goal:: Pt will demo understanding of joint protection and ergonomics when performing BADLs and IADLs by d/c. Pt will demo understanding of adaptive Equipment use to decrease stress on joints to allow pt to perform BADSL and IADLS at RENAN level. - Rehabilitation General Assessment: pt demo with a decrease in FMS and dexterity limiting pts with his IND with ADls and IADLs. pt would benefit from skilled OT services 2x week for 4 weeks to increase strength and FMS to increase pts ind. with ADLs and IALDS. pt and pts family demo understanding and agree to POC. Rehabilitation Potential: Good - Anticipated Interventions A/AAROM/PROM, Strengthening, Fine Motor Coord/Alec, Neuro Reeducation, Education re assistive Equipment, Education re Diagnosis, Caregiver Training, Home Program - Visit Plan Frequency: 2-3x /Week Duration: 4 Weeks TEXT: Thank you for the opportunity to evaluate your patient. For Medicare and Medicare HMO plans, please review the plan of care and approve it. It will need to be FAXED BACK to us at [phone] for Medicare purposes. Please let me know if there are questions or concerns regarding this plan of care. Physician Signature: Date:
--- NOTE | 2022-09-06 15:40 | OTREVAL_ITS ---
Dr. Homer Hernandez MD, It has been my pleasure to treat MONTANA CABRERA over the last 9 visits for hand weakness. Please see the progress note below for an update on the occupational therapy plan of care! Subjective: pt states buttons, writing and dexterity is more challenging- having difficulty with manipulation of latches for chicken coop. pt has noticed a increase in UB strength- Objective/Function: 9 hole peg test right 31.83 sec. this is a decrease from 46.99 sec. right rubber compounder mixer strength 75# left 75#. right lateral pinch 20# increase from 8# left 18# increase from 6#. right tripod pinch 10# increase from 8# left 10# increase from 6#. pt challenged with FMS as writing task- print is good but slow - when timed pt did miss write ABc's and noted increase in shake. (took 1min 34 sec.) Plan Frequency: 2x /Week Duration: 4 Weeks Visits in this POC: 4 weeks (2-3x week) (Insurance- $2230) Plan: Will continue fine motor skills and timed- writing to increase speed. manipulation of latches and buttons Goals - Goals Patient Goals: Use Hand/Wrist/Arm Normally Again, Be More Independent in ADLS Goal:: pt will demo a increase in left rubber compounder mixer strength by 15# to increase ind. with ADLs and IADLs by d.c progressing Goal:: pt will demo increase in FMS noted by decrease in timed 9-hole peg test by 10 sec. or greater by d/c goal met. pt will demo a increase in FMS ie demo ability to manipulate latches, buttons and locks ind. by d.c. pt will report increase ind. with open jar lids IND by d/c Goal:: Pt will demo understanding of joint protection and ergonomics when performing BADLs and IADLs by d/c. Pt will demo understanding of adaptive Equipment use to decrease stress on joints to allow pt to perform BADSL and IADLS at RENAN level. ed pt and family on home and chicken coop modifications to decrease stress on joints by d/c Anticipated Interventions Anticipated Interventions: A/AAROM/PROM, Strengthening, Fine Motor Coord/Alec, Neuro Reeducation, Education re assistive Equipment, Education re Diagnosis, Ca regiver Training, Home Program Please do not hesitate to contact me at [phone] by phone or if you have questions or concerns regarding this new plan of care! Sincerely, Jennifer Duarte OTR/L, CHT
--- NOTE | 2022-10-04 15:56 | HP.OTDCSUM ---
It has been my pleasure to treat MONTANA CABRERA under orders from Dr. Homer Hernandez MD, for the diagnosis of hand weakness for a total of 17 visit(s). Please see the following information for a summary of their discharge status. % Improvement: 75 Objective/Function: right certified low vision therapist 85# increase from 75#. left certified low vision therapist strength 70#. right lateral pinch 22# increase 8#. left lateral pinch 16# increase from 10#. right tripod pinch 14# increase from 10#. left tripod pinch 14# increase from 10#. pt demo with increase in functional strength and has met OT goals at this time. pt agree to continue a PRE t-band HEP to continue increase strength. Patient Goals: Use Hand/Wrist/Arm Normally Again, Be More Independent in ADLS Goal:: pt will demo a increase in left certified low vision therapist strength by 15# to increase ind. with ADLs and IADLs by d.c Goal Met Goal:: pt will demo increase in FMS noted by decrease in timed 9-hole peg test by 10 sec. or greater by d/c goal met. pt will demo a increase in FMS ie demo ability to manipulate latches, buttons and locks ind. by d.c Goal met. pt will report increase ind. with open jar lids IND by d/c Goal met Goal:: Pt will demo understanding of joint protection and ergonomics when performing BADLs and IADLs by d/c. Pt will demo understanding of adaptive Equipment use to decrease stress on joints to allow pt to perform BADSL and IADLS at RENAN level. ed pt and family on home and chicken coop modifications to decrease stress on joints by d/c Plan: D/C at this time Discharge Comments: pt was seen for 17 OT sessions- pt and were ed. on HEP of t-band and home modification for safety and IND. pt and pts agrees to HEP and D/C. If there are questions or concerns regarding this patient's occupational therapy, please fell free to call me at [phone]. Thank you for the referral of this patient. Sincerely, Jennifer Duarte, OTR/L, CHT
== END 2022-10-04 19:00 | disposition home or self-care (01) ==
LOC: OT 15:30
PROVIDERS: PCP Family Medicine; Referring Provider Psychiatry & Neurology Sleep Medicine; Visit Provider Psychiatry & Neurology Sleep Medicine
DX: R29.898 Other symptoms and signs involving the musculoskeletal system (principal)
CPT/HCPCS: 97110; 97166; 97530

== ENCOUNTER 2024-01-30 15:11 | Emergency (ER) | payer MEDICARE, OTHER, SELFPAY ==
[2024-01-30 15:11] VITALS: BP 162/108; PULSE 59; RESP 16; TEMP 36.6; O2SAT 93; BMI 28.0
--- NOTE | 2024-01-30 15:29 | RAD_ITS ---
INDICATION: fall EXAMINATION/TECHNIQUE: X-RAY - LEFT XR Elbow 3Views COMPARISON: FINDINGS: SOFT TISSUES: No soft tissue swelling or gas. No radiopaque foreign body. BONES/JOINTS: There is no displacement of the anterior or posterior fat pads. No acute fracture or subluxation. Normal alignment. Preservation of the joint space. No sclerotic or destructive changes observed. RAD/Elbow 2 Views IMPRESSION: No acute bony injury. Electronically Signed: Rigo Ye DO at 18:12 EDT ,
--- NOTE | 2024-01-30 15:29 | CT_ITS ---
STUDY: CT BRAIN WITHOUT CONTRAST REASON FOR EXAM: Male, 73 years old. fall RADIATION DOSAGE (If Supplied By Facility): CTDIvol = ( 47.06 ) mGy, DLP = ( 943.26 ) mGycm TECHNIQUE: Transaxial CT imaging of the brain was performed without administration of intravenous contrast material. Individualized dose optimization techniques were used for this CT. COMPARISON: No relevant priors. FINDINGS: Soft tissue swelling in the left periorbital and nasal regions. Normal calvarium. Prominent ventricles. Normal extra-axial spaces for the patient''s age. Normal white matter tracts of the cerebral hemispheres. Normal basal ganglia and thalami. Normal brainstem. Normal cerebellum. There is no intracranial hemorrhage. There are no findings of an acute ischemic infarction. Normal visualized paranasal sinuses. Bilateral nasal fractures. CT/Brain/Head without Contrast IMPRESSION: No acute intracranial pathology of the brain. Bilateral nasal fractures. Electronically Signed: Rigo Ye DO at 17:26 EDT ,
--- NOTE | 2024-01-30 15:29 | RAD_ITS ---
INDICATION: pain after fall EXAMINATION/TECHNIQUE: X-RAY - LEFT XR Wrist 3 VIEWS COMPARISON: FINDINGS: SOFT TISSUES: There is soft tissue swelling. No radiopaque foreign body. BONES/JOINTS: No acute fracture or subluxation.. Normal alignment. /Accessory ossification and possible old injury and at the wrist level.. Asymmetric flattening of the lunate with possible old injury. No sclerotic or destructive changes observed. RAD/Wrist min 3 Views IMPRESSION: Soft tissue edema. /Accessory ossifications/old injury at the wrist. Electronically Signed: Rigo Ye DO at 18:11 EDT Reading Location ID and State: [facility] / [place] Tel [phone], Service support ,
--- NOTE | 2024-01-30 15:29 | CT_ITS ---
STUDY: CT CERVICAL SPINE WITHOUT CONTRAST REASON FOR EXAM: Male, 73 years old. fall RADIATION DOSAGE (If Supplied By Facility): CTDIvol = ( 18.84 ) mGy, DLP = ( 398.33 ) mGycm TECHNIQUE: High resolution transaxial imaging was performed without contrast material. Sagittal and coronal images were reconstructed. Individualized dose optimization techniques were used for this CT. COMPARISON: None FINDINGS: Normal craniovertebral junction. Normal anterior atlantoaxial articulation. Normal odontoid process. Normal cervical lordosis. Normal vertebral bodies and posterior osseous elements. C2-3: Normal endplates. Normal disc height and morphology. Normal central canal and intervertebral neuroforamina. C3-4: Normal endplates. Normal disc height and morphology. Normal central canal. Uncovertebral spurring slightly narrowing the intervertebral neuroforamina. C4-5: Mild spurring of the endplates. Narrowed disc height. Normal central canal. Uncovertebral spurring narrowing the intervertebral neuroforamina. C5-6: Mild spurring of the endplates. Narrowed disc height. Normal central canal. Uncovertebral spurring narrowing the intervertebral neuroforamina. C6-7: Mild spurring of the endplates. Narrowed disc height. Normal central canal. Uncovertebral spurring narrowing the intervertebral neuroforamina. C7-T1: Mild spurring of the endplates. Narrowed disc height. Normal central canal and intervertebral neuroforamina. Normal visualized soft tissue structures. CT/Spine Cervical without Contras IMPRESSION: Degenerative changes of the cervical spine. Electronically Signed: Rigo Ye DO at 17:52 EDT Reading Location ID and State: [facility] / [place] Tel [phone], Service support ,
--- NOTE | 2024-01-30 15:31 | EKG12_ITS ---
Test Reason : DYSRHYTHMIA Blood Pressure : / mmHG Vent. Rate : 052 BPM Atrial Rate : 052 BPM P-R Int : 220 ms QRS Dur : 098 ms QT Int : 418 ms P-R-T Axes : -12 -07 018 degrees QTc Int : 388 ms Sinus bradycardia with 1st degree A-V block Incomplete right bundle branch block Borderline ECG Confirmed by ARAM COUCH, CASANDRA ([id number]), editor magazine RUBINA GRIFFIN ([id number]) on 01/31/2024 9:30:48 AM Referred By: TB Confirmed By:CASANDRA CHIU MD
--- NOTE | 2024-01-30 15:32 | CT_ITS ---
INDICATION: fall EXAMINATION: CT FACIAL BONES - CT Maxillofacial W/O Contrast Injection TECHNIQUE: Helically acquired images were obtained of the facial bones. A radiation dose optimization technique was used for this scan. The protocol utilizes one or more of the following dose reduction techniques: automated exposure control, adjustment of mA and/or kV according to patient size,and/or use of iterative reconstruction technique. IV Contrast dosage and agent: None. RADIATION DOSAGE (If Supplied By Facility): CTDIvol = ( 25.01 ) mGy, DLP = ( 554.91 ) mGycm COMPARISON: FINDINGS: SOFT TISSUES: There is soft tissue swelling in the left periorbital and nasal areas. No discrete fluid collections. VISUALIZED PARANASAL SINUSES: Mild mucosal thickening. VISUALIZED MASTOID AIR CELLS: Clear. FACIAL BONES, MANDIBLE AND TMJs: Bilateral nasal fractures. No lytic or blastic abnormality. VISUALIZED DENTITION: No periodontal osseous erosion. ORBITAL CONTENTS: Both globes, extraocular muscles and retrobulbar fat appear unremarkable. CT/Sinus/Facial Bone IMPRESSION: Bilateral nasal fractures. Electronically Signed: iRgo Ye DO at 17:41 EDT Reading Location ID and State: [facility] / [place] Tel [phone], Service support ,
[2024-01-30 16:11] VITALS: BP 184/85; PULSE 87; RESP 18; O2SAT 97
[2024-01-30 16:12] LABS: Absolute Lymphocyte Count 1.25 X10^3/uL (0.83-4.51); Absolute Neutrophil Count 12.6 X10^3/uL (2.0-7.7); Basophil# 0.09 X10^3/uL; Basophil% 0.6 % (0-1); Eosinophil# 0.14 X10^3/uL; Eosinophils% 0.9 % (0-5); Lymphocyte # 1.25 X10^3/ul (0.83-4.51); Lymphocyte % 8.3 % (19-41); Mean Corp Hgb Conc 33.3 g/dL (32-36); Mean Corpuscular Hgb 30.6 pg (27.0-32.0); Mean Corpuscular Volume 91.9 fL (80-94); Mean Platelet Vol. 11.6 fl (6.2-12.0); Monocyte# 0.84 X10^3/uL; Monocyte% 5.6 % (0-10); NRBC Flagged by Analyzer 0 % (0-5); Platelet Count 150 K/mm3 (150-450); RBC Distribution Width CV 12.8 % (11.6-14.6); RBC Distribution Width SD 42.5 fl (35.1-43.9); Red Blood Count 4.57 M/mm3 (4.6-6.2)
[2024-01-30 16:24] LABS: Anion Gap 6 (5-15); BUN 22 mg/dL (7-18); BUN/Creat Ratio 17.9 RATIO (10-20); Calcium,Total 9.7 mg/dL (8.5-10.1); Chloride 106 mmol/L (98-107); Creatinine, Serum 1.23 mg/dL (0.70-1.30); EST Glomerular Filtration Rate 61 mL/min (>60); Est Glom Filt Rate - Afr Amer 74 mL/min (>60); Estimated Creatinine Clearance 59.98 ml/min; Glucose 102 mg/dL (74-106); Potassium 4.5 mmol/L (3.5-5.1); Sodium Level 139 mmol/L (136-145)
[2024-01-30] MEDS: 0.9% Normal Saline (1000mL) 1,000 ML 999 ML IV (16:25)
[2024-01-30] MEDS: Diphth,Pertuss(Acell),Tet Vac 0.5 ML Vial IM (16:26)
[2024-01-30 16:27] LABS: Partial Thromboplast Time 27.7 Seconds (24.1-36.2); Prothrombin Time (Protime)PT. 13.2 SECONDS (11.7-14.9)
--- NOTE | 2024-01-30 16:40 | RAD_ITS ---
INDICATION: fall EXAMINATION/TECHNIQUE: X-RAY - XR Chest 1 View COMPARISON: FINDINGS: LINES/DEVICES: None. LUNGS: No consolidation, edema or effusion. No pneumothorax. MEDIASTINUM AND CARDIOVASCULAR STRUCTURES: Cardiac silhouette not enlarged. Central airways and mediastinal contour are unremarkable. BONES AND SOFT TISSUES: Degenerative vertebral changes. RAD/Chest 1 View (Portable) IMPRESSION: No radiographic evidence of acute cardiopulmonary disease. Electronically Signed: Rigo Ye DO at 18:13 EDT ,
[2024-01-30 17:00] VITALS: BP 164/87; PULSE 79; RESP 16; O2SAT 97
--- NOTE | 2024-01-30 17:03 | EDS_ITS ---
HPI History of Present Illness Chief Complaint: Fall Narrative Narrative: Patient is a 73-year-old male past medical history of hypercholesteremia, migraine headaches, vertigo, TBI, hypertension, CVA who presented to the emergency department today with chief complaint of fall down a set of stairs. Patient states that he was just got done taking a shower carrying a lot of items in his hand. He states that when he got to the top of the stairs he lost his balance and given that he had too much stuff in his hands could not catch himself causing him to fall down a set of stairs. He states that he did hit his head he is complaining of lacerations to his face. He states that he does not believe he passed out or lost consciousness. They deny any blood thinning medications. Patient states that he did not have any chest pain shortness of breath, lightheadedness or dizziness prior to the fall. [facility] Medical History Loss of hearing Bladder disease Ambulates with cane High cholesterol Easy bruising Back pain Migraine headache Syncope History of diverticulitis Non-smoker Hx of vertigo Hx of pilonidal cyst TBI (traumatic brain injury) Gout Hypertension Stroke/cerebrovascular accident Home Medications ?Medication ?Instructions ?Recorded ?Last Taken ?Type aspirin 81 mg tablet,delayed 81 mg PO DAILY@0800 07/26/16 07/17/21 00:00 History release lisinopril 20 1 ea PO DAILY 07/26/16 02/26/17 History mg-hydrochlorothiazide 25 mg tablet (Zestoretic) simvastatin 40 mg tablet 40 mg PO QHS 07/26/16 02/26/17 History allopurinol 100 mg tablet 300 mg PO DAILY 12/30/16 02/26/17 History diphenhydramine HCl 25 mg capsule 25 mg PO Q6H PRN Sleep 07/12/21 Unknown History (Benadryl) escitalopram oxalate 5 mg tablet 5 mg PO DAILY 07/12/21 Unknown History (Lexapro) fluticasone propionate 50 1 spray intranasal BID 07/12/21 Unknown History mcg/actuation nasal spray,suspension (Flonase Allergy Relief) ibuprofen 200 mg capsule 200 mg PO Q6H PRN Pain 07/12/21 Unknown History Allergy/AdvReac Type Severity Reaction Status Date / Time Sulfa (Sulfonamide Allergy Other Verified 01/30/24 15:14 Antibiotics) Surgical History Hx of colonoscopy Hx of tracheostomy History of inguinal hernia repair, bilateral Hx of hand surgery Social History Smoking Status: Never smoker ROS ROS ED ROS Narrative Constitutional: Denies any headaches, dizziness, lightheadedness, fevers, chills Eyes: Denies change in vision double vision blurry vision Cardiovascular: Denies chest pain or palpitations Respiratory: Denies coughing wheezing shortness of breath Abdomen: Denies abdominal pain nausea vomit diarrhea : Denies any urinary symptoms Neurological: Denies any weakness, numbness, tingling Musculoskeletal: Denies any bony pain Skin: Complains of cuts to his face EXAM Physical Exam Narrative Exam Narrative: General: Patient lying in bed rest comfortably did not appear to be in acute distress Head: Patient has a laceration noted over the bridge of his nose as well as over the left side of his face above his eye, no raccoon eyes or Chambers sign noted Eyes: PERRL bilaterally, EOMI bilaterally, no conjunctival injection noted, Ears, nose, throat: No nasal septal hematomas noted bilaterally, no hemotympanum noted bilaterally Neck: Soft, supple, trachea midline, no tenderness palpation midline cervical spine Cardiovascular: Regular rate and rhythm no murmurs gallops rubs noted Respiratory: Clear to auscultation bilaterally no rales rhonchi or wheezes noted Abdomen: No tenderness palpation, bowel sounds present for Musculoskeletal: Patient in mild tenderness palpation over the left wrist however all other joints taken through full range of motion and bony prominences palpated no pain elicited. No tenderness palpation of midline thoracic lumbar spine Extremities: +5/5 strength noted in the bilateral upper and lower extremities, no pedal edema on exam Neurological: Patient following commands knew he is [facility] year is 2023 Skin: See head Const Vital Signs: 01/30/24 15:11 01/30/24 16:11 01/30/24 16:31 Temperature 98 F Temperature Source Temporal Pulse Rate 59 L 87 Respiratory Rate 16 18 Respiratory Effort Normal Respiratory Depth Normal Respiratory Pattern Normal Blood Pressure 162/108 H 184/85 H Blood Pressure Mean 126 118 Pulse Ox 93 97 Oxygen Delivery Method Room Air Room Air Room Air MDM MDM MDM Narrative Medical decision making narrative: Patient is a 73-year-old male who presented to the emergency department with a chief complaint of mechanical fall. Patient will have a workup performed here on the differential diagnosis includes Melamin to facial lacerations, mechanical fall, intracranial hemorrhage, cervical spine fracture. Once workup is obtained reviewed he will be reevaluated. Patient CBC reviewed showed white blood cell count of 15,000, hemoglobin was 14 , Platelet count normal 150. Patient INR normal at 1, sodium normal 139, potassium normal at 4.5, creatinine normal at 1.23. Patient's urinalysis still pending. Patient's images are still pending. Patient's case was signed out to oncoming provider to follow-up on these images and make the ultimate disposition see their note for the details. Procedure note Laceration repair Location: Patient had a complex 3 and half centimeter laceration over the bridge of his nose, complex laceration noted just superior lateral to the left forehead above his eyebrow, patient has a 1-1/2 cm laceration above that previous laceration Preprocedure diagnosis: Laceration Post procedure diagnosis: Repaired laceration Informed consent was obtained before procedure started. Procedure: The appropriate timeout was taken. The area was prepped and draped in the usual sterile fashion. Local anesthesia was achieved using a total of 5 cc of 1% lidocaine without epinephrine. The wound was copiously irrigated. In the patient's bridge of the nose he had seven 6-0 nylon interrupted sutures placed. Patient had six 6-0 nylon interrupted sutures placed on the laceration just above his eyebrow on the left side and then had three 6-0 nylon interrupted sutures placed in the laceration above the previous 1. Estimated blood loss was less than 0.5 mL. Dressing was applied to the area. Follow-up images are pending. Patient will need the sutures removed in approximately 5 to 7 days. Lab Data Labs: Laboratory Results - last 24 hr 01/30/24 16:05 WBC 15.0 H RBC 4.57 L Hgb 14.0 Hct 42.0 MCV 91.9 MCH 30.6 MCHC 33.3 RDW Std Deviation 42.5 RDW Coeff of Anna 12.8 Plt Count 150 MPV 11.6 Immature Gran % (Auto) 0.600 Neut % (Auto) 84.0 H Lymph % (Auto) 8.3 L Craven % (Auto) 5.6 Eos % (Auto) 0.9 Baso % (Auto) 0.6 Absolute Neuts (auto) 12.6 H Absolute Lymphs (auto) 1.25 Nucleated RBC % 0 PT 13.2 INR 1.0 APTT 27.7 Sodium 139 Potassium 4.5 Chloride 106 Carbon Dioxide 27.0 Anion Gap 6 BUN 22 H Creatinine 1.23 Estim Creat Clear Calc 59.98 Est GFR (MDRD) Af Amer 74 Est GFR (MDRD) Non-Af 61 BUN/Creatinine Ratio 17.9 Glucose 102 Calcium 9.7 Discharge Plan Triage Chief Complaint: Fall Other Complaint: Laceration ED Provider: Bear Blanco Dx/Rx/DC Orders Prescriptions: No Action aspirin 81 MG tablet 81 mg PO DAILY@0800 Patient Comments: heart health simvastatin 40 MG tablet 40 mg PO QHS Patient Comments: cholesterol lisinopril-hydrochlorothiazide [Zestoretic] 1 EACH tablet 1 ea PO DAILY Patient Comments: bp allopurinol 100 MG tablet 300 mg PO DAILY Patient Comments: take 1 tablet once a day for gout fluticasone propionate [Flonase Allergy Relief] 50 mcg/actuation [place],Suspension 1 spray INTRANASAL BID escitalopram oxalate [Lexapro] 5 mg Tablet 5 mg PO DAILY ibuprofen 200 mg Capsule 200 mg PO Q6H PRN (Reason: Pain) diphenhydramine HCl [Benadryl] 25 mg Capsule 25 mg PO Q6H PRN (Reason: Sleep) Primary Care Provider: Carlton Gaspar Referrals: Carlton Gaspar MD [Primary Care Provider] - Print Language: Wolof
[2024-01-30 18:00] VITALS: BP 168/74; PULSE 88; RESP 16; O2SAT 97
[2024-01-30 18:47] LABS: Color, Urine Yellow (Yellow); Glucose, Dipstick Normal (Normal); Ketone-Dipstick 5 mg/dl (Negative); Leukocyte Esterase-Dipstick 25 /ul (Negative); Nitrite-Dipstick Negative (Negative); Occult Blood-Urine 10 /ul (Negative); Protein-Dipstick Negative (Negative); Urine Bilirubin Dipstick Negative (Negative); Urine Clarity Clear (Clear); Urine Urobilinogen Normal (Normal)
[2024-01-30 19:09] VITALS: BP 164/78; PULSE 81; RESP 18; TEMP 36.6; O2SAT 97
== END 2024-01-30 19:10 | disposition home or self-care (01) ==
PROVIDERS: Emergency Provider Emergency Medicine; PCP Family Medicine; Visit Provider Emergency Medicine
DX: S01.112A Laceration without foreign body of left eyelid and periocular area, initial encounter (principal); S01.81XA Laceration without foreign body of other part of head, initial encounter; E78.00 Pure hypercholesterolemia, unspecified; I10 Essential (primary) hypertension; Z79.82 Long term (current) use of aspirin; W10.9XXA Fall (on) (from) unspecified stairs and steps, initial encounter; Z86.73 Personal history of transient ischemic attack (TIA), and cerebral infarction without residual deficits; R23.3 Spontaneous ecchymoses
CPT/HCPCS: 12013; 70450; 70486; 71045; 72125; 73070; 73110; 80048; 81002; 85025; 85610; 85730; 90715; 93005; 99284; J7030; A4216

== ENCOUNTER 2024-03-17 18:00 | Outpatient (RCR) | payer MEDICARE, OTHER, SELFPAY ==
--- NOTE | 2023-09-25 16:00 | HP.PTEVAL_ITS ---
Patient's Visit Information Visit Information Visit Information: MONTANA CABRERA is a 73 year old M referred to Physical Therapy by Dr. Homer Hernandez MD with a diagnosis of ABNORMALITY OF GAIT ,RECURRENT FALLS ,H/O TBI. Date of Evaluation: 09/25/23 Physical Therapist: Jarod Miles, PT, Cert MDT, OCS Visit Plan Frequency: 2x /Week Duration: 4 Weeks Plan: PT INTERVENTIONS PROGRESSIVE BALANCE TRAINING ,GAIT TRAINING ,STRENGTHENING BLE AND FUNCTIONAL STRENGTHENING Subjective Subjective: This 73 y/o male presents to physical therapy with gait abnormality. Initially , patient has 1970 17 y/o and recovery well. Then then had CVA 2009 with right side hemiplegia. Most recently seen Neurologist and has been falling with most recent fall last week . Spouse stated seems to fall turning and trips on feet. Patient cane for gait but doesn't use cane in home . Patient is able to dress and bathing. Patient assist with cooking. Patient lives in [address] [place] home 6 steps with railing. Patient has Patient denies paresthesia/tingling.Denies pain. Patient sleeping okay . Patient has had Rehab in past. Patient condition affects QOL and function/gait/balance. Patient goals to improve balance and gait and safety. SOCIAL: VOCATION: diabiity Objective Objective: POSTURE: mild forward posture GAIT : ambulated with straight cane unsteady gait with 2 point pattern with decrease step length BALANCE: fair+ with cane FLEXABILITY: hamstrings min tight MMT: quads/hams 4/5 ,hip flexion 4-/5 ,ankle 4/5 STAIRS: one steps at time with rails cane Balance/Special Test Scores Functional Gait Assessment Score: 6 % Disability: 80.0000 CATSIB Score (Max score 120 seconds): 60 Lower Extremity Functional Score: 29 30 Second Chair Rise Test Seconds: 7 Goals Goal 1:: Patient to be I with HEP Goal Time Frame: 4-6 Weeks Goal 2:: Patient to improve CATSIB by 10 points to improve balance and decrease risk of falls Goal Time Frame: 4-6 Weeks Goal 3:: Patient to improve LFES score by 5-10 points to improve QOL and gait Goal Time Frame: 4-6 Weeks Goal 4:: Patient to improve functional gait assessment score by 5 point to decrease risk of falls Goal Time Frame: 4-6 Weeks Goal 5:: Patient 30sec sit-stand by 3-5 reps to improve functional strength Goal Time Frame: 4-6 Weeks Rehabilitation Potential Physical Therapy Diagnosis: This patient has decrease gait and balance with h/o TBI affecting left side and CVA affecting right side thus benefit from skilled PT Rehabilitation Potential: Fair Anticipated Interventions Patient/Client Instruction: Educate patient on: Condition and Plan of Care For the Purpose of:: To decrease pain, To improve muscle performance and motor function, To improve ability to perform ADL's, To increase tolerance to activity/condition/position, To improve performance and independence with ADL's, To improve ability of physical actions for home/community/work/leisure, To improve gait and locomotor functions, To improve endurance, To improve balance and To improve safety with gait Therapeutic Exercise to Include: Strength training, Endurance training, Balance training and Gait and locomotor training Comment: BLE For the Purpose of:: To improve muscle performance and motor function, To improve ability to perform ADL's, To increase tolerance to activity/condition/position, To improve ability of physical actions for home/community/work/leisure, To improve gait and locomotor functions, To increase flexibility/ROM, To improve endurance, To improve balance and To improve safety with gait Text: Thank you for the opportunity to evaluate your patient. For Medicare and Medicare HMO plans, please review the plan of care and approve it. It will need to be FAXED BACK to us at [phone] for Medicare purposes. For Medicare only, by signing this I certify the plan of care. Please let me know if there are questions or concerns regarding this plan of care. Physician Signature: Date:
--- NOTE | 2023-10-24 14:51 | HP.PTREVAL_ITS ---
Re-Evaluation Intro: Dr. Homer Hernandez MD, It has been my pleasure to treat MONTANA CABRERA over the last 9 visits for ABNORMALITY OF GAIT ,RECURRENT FALLS ,H/O TBI. Please see the progress note below for an update on the physical therapy plan of care! Subjective Subjective: Patient fell yesterday from dizziness but overall since therapy has improvement with less fall Objective Objective/Function: * Patient well benefit From skilled PT due to balance deficits with less falling thus goals are addressed and appropriate* POSTURE: mild forward posture GAIT : ambulated with straight cane unsteady gait with 2 point pattern with decrease step length BALANCE: fair+ with cane FLEXABILITY: hamstrings min tight MMT: quads/hams 4/5 ,hip flexion 4-/5 ,ankle 4/5 STAIRS: one steps at time with rails cane Plan Plan Plan: PT INTERVENTIONS PROGRESSIVE BALANCE TRAINING ,GAIT TRAINING ,STRENGTHENING BLE AND FUNCTIONAL STRENGTHENING Balance/Gait/Functional tests Balance/Special Test Scores Functional Gait Assessment Score: 7 % Disability: 76.6700 CATSIB Score (Max score 120 seconds): 65 Lower Extremity Functional Score: 31 TUG Test Time Seconds: 12.91 Tug Test: <20 sec.=mostly independent 30 Second Chair Rise Test Seconds: 9 Goals Goals Goal 1:: Patient to be I with HEP Goal Time Frame: 4-6 Weeks Goal Progress: Progressing Goal 2:: Patient to improve CATSIB by 10 points to improve balance and decrease risk of falls Goal Time Frame: 4-6 Weeks Goal Progress: Progressing Goal 3:: Patient to improve LFES score by 5-10 points to improve QOL and gait Goal Time Frame: 4-6 Weeks Goal Progress: Progressing Goal 4:: Patient to improve functional gait assessment score by 5 point to decrease risk of falls Goal Time Frame: 4-6 Weeks Goal Progress: Progressing Goal 5:: Patient 30sec sit-stand by 3-5 reps to improve functional strength Goal Time Frame: 4-6 Weeks Goal Progress: Progressing Anticipated Interventions Anticipated Interventions Patient/Client Instruction: Educate patient on: Condition and Plan of Care For the Purpose of:: To decrease pain, To improve muscle performance and motor function, To improve ability to perform ADL's, To increase tolerance to activity/condition/position, To improve performance and independence with ADL's, To improve ability of physical actions for home/community/work/leisure, To improve gait and locomotor functions, To improve endurance, To improve balance and To improve safety with gait Therapeutic Exercise to Include: Strength training, Endurance training, Balance training and Gait and locomotor training Comment: BLE For the Purpose of:: To improve muscle performance and motor function, To improve ability to perform ADL's, To increase tolerance to activity/condition/position, To improve ability of physical actions for home/community/work/leisure, To improve gait and locomotor functions, To increase flexibility/ROM, To improve endurance, To improve balance and To impr ove safety with gait Re-Evaluation Ending Re-evaluation ending: Please do not hesitate to contact me at [phone] by phone or Fax: if you have questions or concerns regarding this new plan of care! Sincerely, Jarod Miles, PT, Cert MDT, OCS
--- NOTE | 2023-11-26 15:49 | HP.PTREVAL ---
Re-Evaluation Intro: Dr. Homer Hernandez MD, It has been my pleasure to treat MONTANA CABRERA over the last 17 visits for ABNORMALITY OF GAIT ,RECURRENT FALLS ,H/O TBI. Please see the progress note below for an update on the physical therapy plan of care! Subjective Subjective: Doing much better Objective Objective/Function: * Patient well benefit From skilled PT due to balance deficits but has improved with CATSIB and functional gait assessment with less falling thus goals addressed updated and cont to be appropriate* POSTURE: mild forward posture GAIT : ambulated with straight cane unsteady gait with 2 point pattern with decrease step length BALANCE: fair+ with cane FLEXABILITY: hamstrings min tight MMT: quads/hams 4/5 ,hip flexion 4-/5 ,ankle 4/5 STAIRS: one steps at time with rails cane Plan Plan Plan: PT INTERVENTIONS PROGRESSIVE BALANCE TRAINING ,GAIT TRAINING ,STRENGTHENING BLE AND FUNCTIONAL STRENGTHENING Balance/Gait/Functional tests Balance/Special Test Scores Functional Gait Assessment Score: 12 % Disability: 60.0000 CATSIB Score (Max score 120 seconds): 76 Lower Extremity Functional Score: 37 TUG Test Time Seconds: 12.91 Tug Test: <20 sec.=mostly independent 30 Second Chair Rise Test Seconds: 11 Goals Goals Goal 1:: Patient to be I with HEP Goal Time Frame: 4-6 Weeks Goal Progress: Progressing Goal 2:: Patient to improve CATSIB by 10 points to improve balance and decrease risk of falls ( new goal) Goal Time Frame: 4-6 Weeks Goal Progress: Progressing Goal 3:: Patient to improve LFES score by 5-10 points to improve QOL and gait ( new goals) Goal Time Frame: 4-6 Weeks Goal Progress: Progressing Goal 4:: Patient to improve functional gait assessment score by 5 point to decrease risk of falls (new goals) Goal Time Frame: 4-6 Weeks Goal Progress: Progressing Goal 5:: Patient 30sec sit-stand by 3-5 reps to improve functional strength Goal Time Frame: 4-6 Weeks Goal Progress: Progressing Anticipated Interventions Anticipated Interventions Patient/Client Instruction: Educate patient on: Condition and Plan of Care For the Purpose of:: To decrease pain, To improve muscle performance and motor function, To improve ability to perform ADL's, To increase tolerance to activity/condition/position, To improve performance and independence with ADL's, To improve ability of physical actions for home/community/work/leisure, To improve gait and locomotor functions, To improve endurance, To improve balance and To improve safety with gait Therapeutic Exercise to Include: Strength training, Endurance training, Balance training and Gait and locomotor training Comment: BLE For the Purpose of:: To improve muscle performance and motor function, To improve ability to perform ADL's, To increase tolerance to activity/condition/position, To improve ability of physical actions for home/community/work/leisure, To improve gait and locomotor functions, To increase flexibility/ROM, To improve endurance, To improve balance and To improve safety with gait Re-Evaluation Ending Re-evaluation ending: Please do not hesitate to contact me at [phone] by phone or if you have questions or concerns regarding this new plan of care! Sincerely, Jarod Miles, PT, Cert MDT, OCS
--- NOTE | 2023-12-26 15:32 | HP.PTREVAL_ITS ---
Re-Evaluation Intro: Dr. Homer Hernandez MD, It has been my pleasure to treat MONTANA CABRERA over the last 25 visits for ABNORMALITY OF GAIT ,RECURRENT FALLS ,H/O TBI. Please see the progress note below for an update on the physical therapy plan of care! Subjective Subjective: Doing better walking ,seen Dr Happy with progress no falls recently Objective Objective/Function: * Patient well benefit From skilled PT due to balance deficits but has improved with gait increase step length with no recent falling thus goals addressed updated and cont to be appropriate* POSTURE: mild forward posture GAIT : ambulated with straight cane unsteady gait with 2 point pattern with increase step and stride length BALANCE: good- with cane FLEXABILITY: hamstrings min tight MMT: quads/hams 5/5 ,hip flexion 4/5 ,ankle 4/5 STAIRS: one steps at time with rails cane Plan Plan Plan: PT INTERVENTIONS PROGRESSIVE BALANCE TRAINING, GAIT TRAINING, STRENGTHENING BLE AND FUNCTIONAL STRENGTHENING. Balance/Gait/Functional tests Balance/Special Test Scores Functional Gait Assessment Score: 13 % Disability: 56.6700 CATSIB Score (Max score 120 seconds): 65 Lower Extremity Functional Score: 37 TUG Test Time Seconds: 11.9 Tug Test: <20 sec.=mostly independent 30 Second Chair Rise Test Seconds: 11 Goals Goals Goal 1:: Patient to be I with HEP Goal Time Frame: 4-6 Weeks Goal Progress: Progressing Goal 2:: Patient to improve CATSIB by 10 points to improve balance and decrease risk of falls ( new goal) Goal Time Frame: 4-6 Weeks Goal Progress: Progressing Goal 3:: Patient to improve LFES score by 5-10 points to improve QOL and gait ( new goals) Goal Time Frame: 4-6 Weeks Goal Progress: Progressing Goal 4:: Patient to improve functional gait assessment score by 5 point to decrease risk of falls (new goals) Goal Time Frame: 4-6 Weeks Goal Progress: Progressing Goal 5:: Patient 30sec sit-stand by 3-5 reps to improve functional strength Goal Time Frame: 4-6 Weeks Goal Progress: Progressing Anticipated Interventions Anticipated Interventions Patient/Client Instruction: Educate patient on: Condition and Plan of Care For the Purpose of:: To decrease pain, To improve muscle performance and motor f unction, To improve ability to perform ADL's, To increase tolerance to activity/condition/position, To improve performance and independence with ADL's, To improve ability of physical actions for home/community/work/leisure, To improve gait and locomotor functions, To improve endurance, To improve balance and To improve safety with gait Therapeutic Exercise to Include: Strength training, Endurance training, Balance training and Gait and locomotor training Comment: BLE For the Purpose of:: To improve muscle performance and motor function, To improve ability to perform ADL's, To increase tolerance to activity/condition/position, To improve ability of physical actions for home/community/work/leisure, To improve gait and locomotor functions, To increase flexibility/ROM, To improve endurance, To improve balance and To improve safety with gait Re-Evaluation Ending Re-evaluation ending: Please do not hesitate to contact me at [phone] by phone or if you have questions or concerns regarding this new plan of care! Sincerely, Jarod Miles, PT, Cert MDT, OCS
--- NOTE | 2024-02-27 16:56 | HP.PTREVAL ---
Re-Evaluation Intro: Dr. Homer Hernandez MD, It has been my pleasure to treat MON[place]NA CABRERA over the last 33 visits for ABNORMALITY OF GAIT ,RECURRENT FALLS ,H/O TBI. Please see the progress note below for an update on the physical therapy plan of care! Subjective Subjective: Patient fell down stairs and land on back but fracture nose and facial laceration,which caused concussions Patient went ER via family Patient has mechanical falls x2 Objective Objective/Function: V\* Patient well benefit From skilled PT due to balance deficits and new episode of falling downs steps thus addressed updated and cont to be appropriate due to severity of the fall causing concussions* POSTURE: mild forward posture GAIT : ambulated with straight cane unsteady gait with 2 point pattern with increase step and stride length BALANCE: good- with cane FLEXABILITY: hamstrings min tight MMT: quads/hams 5/5 ,hip flexion 4/5 ,ankle 4/5 STAIRS: one steps at time with rails cane Plan Plan Plan: START SLOW AFTER THE FALL PT INTERVENTIONS PROGRESSIVE BALANCE TRAINING, GAIT TRAINING, STRENGTHENING BLE AND FUNCTIONAL STRENGTHENING. Balance/Gait/Functional tests Balance/Special Test Scores Functional Gait Assessment Score: 3 % Disability: 90.0000 CATSIB Score (Max score 120 seconds): 25 Lower Extremity Functional Score: 37 TUG Test Time Seconds: 11.9 Tug Test: <20 sec.=mostly independent 30 Second Chair Rise Test Seconds: 11 Goals Goals Goal 1:: Patient to be I with HEP Goal Time Frame: 4-6 Weeks Goal Progress: Progressing Goal 2:: Patient to improve CATSIB by 10 points to improve balance and decrease risk of falls ( new goal) Goal Time Frame: 4-6 Weeks Goal Progress: Progressing Goal 3:: Patient to improve LFES score by 5-10 points to improve QOL and gait ( new goals) Goal Time Frame: 4-6 Weeks Goal Progress: Progressing Goal 4:: Patient to improve functional gait assessment score by 5 point to decrease risk of falls (new goals) Goal Time Frame: 4-6 Weeks Goal Progress: Progressing Goal 5:: Patient 30sec sit-stand by 3-5 reps to improve functional strength Goal Time Frame: 4-6 Weeks Goal Progress: Progressing Anticipated Interventions Anticipated Interventions Patient/Client Instruction: Educate patient on: Condition and Plan of Care For the Purpose of:: To decrease pain, To improve muscle performance and motor function, To improve ability to perform ADL's, To increase tolerance to activity/condition/position, To improve performance and independence with ADL's, To improve ability of physical actions for home/community/work/leisure, To improve gait and locomotor functions, To improve endurance, To improve balance and To improve safety with gait Therapeutic Exercise to Include: Strength training, Endurance training, Balance training and Gait and locomotor training Comment: BLE For the Purpose of:: To improve muscle performance and motor function, To improve ability to perform ADL's, To increase tolerance to activity/condition/position, To improve ability of physical actions for home/community/work/leisure, To improve gait and locomotor functions, To increase flexibility/ROM, To improve endurance, To improve balance and To improve safety with gait Re-Evaluation Ending Re-evaluation ending: Please do not hesitate to contact me at [phone] by phone or if you have questions or concerns regarding this new plan of care! Sincerely, Jarod Miles, PT, Cert MDT, OCS
== END 2024-03-17 19:00 | disposition home or self-care (01) ==
LOC: PT 18:00
PROVIDERS: PCP Family Medicine; Referring Provider Psychiatry & Neurology Sleep Medicine; Visit Provider Psychiatry & Neurology Sleep Medicine
DX: R26.9 Unspecified abnormalities of gait and mobility (principal); R29.6 Repeated falls; Z87.820 Personal history of traumatic brain injury
CPT/HCPCS: 97110; 97112; 97162; 97530

== ENCOUNTER 2024-06-08 15:00 | Outpatient (RCR) | payer MEDICARE, OTHER, SELFPAY ==
--- NOTE | 2024-04-09 16:01 | HP.PTREVAL ---
Re-Evaluation Intro: Dr. Homer Hernandez MD, It has been my pleasure to treat MON[place] CABRERA over the last 42 visits for ABNORMALITY OF GAIT ,RECURRENT FALLS ,H/O TBI. Please see the progress note below for an update on the physical therapy plan of care! Subjective Subjective: Making progress getting strength and balance Objective Objective/Function: * Patient well benefit From skilled PT due to balance deficits and new episode of falling downs steps thus addressed updated and cont to be appropriate due to severity of the fall causing concussions* POSTURE: mild forward posture GAIT : ambulated with straight cane unsteady gait with 2 point pattern with increase step and stride length BALANCE: good- with cane FLEXABILITY: hamstrings min tight MMT: quads/hams 5/5 ,hip flexion 4/5 ,ankle 4/5 STAIRS: one steps at time with rails cane Plan Plan Plan: FOCUS ON MACHINES SEVERAL VISIT TO BE D/C TO GYM PT INTERVENTIONS PROGRESSIVE BALANCE TRAINING, GAIT TRAINING, STRENGTHENING BLE AND FUNCTIONAL STRENGTHENING. Balance/Gait/Functional tests Balance/Special Test Scores Functional Gait Assessment Score: 12 % Disability: 60.0000 CATSIB Score (Max score 120 seconds): 30 TUG Test Time Seconds: 11.9 Tug Test: <20 sec.=mostly independent 30 Second Chair Rise Test Seconds: 11 Goals Goals Goal 1:: Patient to be I with HEP Goal Time Frame: 4-6 Weeks Goal Progress: Progressing Goal 2:: Patient to improve CATSIB by 10 points to improve balance and decrease risk of falls ( new goal) Goal Time Frame: 4-6 Weeks Goal Progress: Progressing Goal 3:: Patient to improve LFES score by 5-10 points to improve QOL and gait ( new goals Goal Time Frame: 4-6 Weeks Goal Progress: Progressing Goal 4:: Patient to improve functional gait assessment score by 5 point to decrease risk of falls (new goals) Goal Time Frame: 4-6 Weeks Goal Progress: Progressing Goal 5:: Patient 30sec sit-stand by 3-5 reps to improve functional strength Goal Time Frame: 4-6 Weeks Anticipated Interventions Anticipated Interventions Patient/Client Instruction: Educate patient on: Condition, Plan of Care and Risk Factors For the Purpose of:: To increase ROM, To improve muscle performance and motor function, To improve ability to perform ADL's, To increase tolerance to activity/condition/position, To improve ability of physical actions for home/community/work/leisure, To improve gait and locomotor functions, To improve health of tissue, To decrease soft tissue restriction, To increase flexibility/ROM, To improve endurance, To improve balance, To improve safety with gait and To reduce risk of recurrence Therapeutic Exercise to Include: Strength training, Power training, Endurance training, Balance training, Postural training, Flexibilty training and Gait and locomotor training Comment: BLE For the Purpose of:: To increase ROM, To improve muscle performance and motor function, To improve ability to perform ADL's, To increase tolerance to activity/condition/position, To improve ability of physical actions for home/community/work/leisure, To improve gait and locomotor functions, To increase flexibility/ROM, To improve endurance and To improve balance Re-Evaluation Ending Re-evaluation ending: Please do not hesitate to contact me at [phone] by phone or if you have questions or concerns regarding this new plan of care! Sincerely, Jarod Miles, PT, Cert MDT, OCS
--- NOTE | 2024-06-08 15:29 | HP.PTDCSUM ---
Discharge Summary D/C summary: It has been my pleasure to treat MON[place] CABRERA referred by Dr. Homer Hernandez MD, with the diagnosis of ABNORMALITY OF GAIT ,RECURRENT FALLS ,H/O TBI for a total of 46 visit(s). Discharge Date: 06/08/24 Please see the following information for a summary of their discharge status. Subjective Subjective: Doing good ready to go on own Overall Improvement % Improvement: 60 Objective Objective/Function: POSTURE: mild forward posture GAIT : ambulated with straight cane unsteady gait with 2 point pattern with increase step and stride length BALANCE: good- with cane FLEXABILITY: hamstrings min tight MMT: quads/hams 5/5 ,hip flexion 4/5 ,ankle 4/5 STAIRS: one steps at time with rails cane Goals Goal 1:: Patient to be I with HEP Goal Progress: Goal Met Goal 2:: Patient to improve CATSIB by 10 points to improve balance and decrease risk of falls ( new goal) Goal Progress: Goal Met Goal 3:: Patient to improve LFES score by 5-10 points to improve QOL and gait ( new goals Goal Progress: Goal Met Goal 4:: Patient to improve functional gait assessment score by 5 point to decrease risk of falls (new goals) Goal Progress: Goal Met Goal 5:: Patient 30sec sit-stand by 3-5 reps to improve functional strength Goal Progress: Goal Met Plan Plan: d/c D/C Information Discharge Comments: Gym and HEP d/c sentence: If there are questions or concerns regarding this patient's physical therapy, please feel free to call me at [phone]. Thank you for the referral of this patient. Sincerely, Jarod Miles, PT, Cert MDT, OCS Balance/Gait/Functional tests Balance/Special Test Scores Functional Gait Assessment Score: 12 % Disability: 60.0000 CATSIB Score (Max score 120 seconds): 35 Lower Extremity Functional Score: 46 TUG Test Time Seconds: 11.9 Tug Test: <20 sec.=mostly independent 30 Second Chair Rise Test Seconds: 11 Improvement % Improvement: 60
== END 2024-06-08 19:00 | disposition home or self-care (01) ==
LOC: PT 15:00
PROVIDERS: PCP Family Medicine; Referring Provider Psychiatry & Neurology Sleep Medicine; Visit Provider Psychiatry & Neurology Sleep Medicine
DX: R26.9 Unspecified abnormalities of gait and mobility (principal); R29.6 Repeated falls; Z87.820 Personal history of traumatic brain injury
CPT/HCPCS: 97110; 97530